=== PATIENT | male | born 1980 | race Hispanic/Latino ===

== ENCOUNTER 2018-02-07 16:36 | Emergency (ER) | payer OTHER ==
[~2018-02-07] VITALS: Ht 182.9 cm; Wt 112.2 kg
[2018-02-07 16:42] VITALS: BP 142/94
== END 2018-02-07 18:20 | disposition home or self-care (01) ==
LOC: EME 16:36
DX: J06.9 Acute upper respiratory infection, unspecified (principal)
CPT/HCPCS: 87651 90; 99281; 99284; J1100